=== PATIENT | female | born 1970 | race Caucasian/White ===

== ENCOUNTER → 2016-10-18 | Outpatient (CLI) | payer BC, OTHER ==
[~2016-10-18] MED LIST: CALC500C70 PO; CHOL1TAB42 PO; CYAN500T PO; HYDR-5688 PO; MELO7.5T5 PO; MISCCAP80 PO; MULT-506 PO; OMEG10007 PO
--- NOTE | 2016-10-18 14:56 | DIAGNOSTIC IMAGING REPORT ---
MRI OF THE LEFT KNEE CLINICAL HISTORY: Left knee pain. COMPARISON STUDY: Radiographs of the left knee dated 01/22/2012. TECHNIQUE: MRI of the left knee was performed utilizing proton density, T1, and T2-weighted sequences in the axial, sagittal, coronal planes. IV contrast was not administered for this examination. Note that interpretation is suboptimal without current plain film correlate. FINDINGS: Menisci: An oblique tear is identified involving the body and posterior horn of the medial meniscus. This appears to extend to the articular surface, best seen on the sagittal proton density image #6. The lateral meniscus is intact. Ligaments: The anterior and posterior cruciate ligaments are intact. The medial and lateral collateral ligaments are within normal limits. Extensor mechanism: The extensor mechanism is intact. Hoffa's fat pad is normal in appearance. Articular cartilage and bone: The articular cartilage is intact and well maintained all 3 compartments. Normal marrow signal is preserved of the visualized bony structures. There are tiny medial marginal osteophytes. Joint effusion: There is trace joint effusion. Soft tissues: There is faint intramuscular edema suggested within both heads of the gastrocnemius muscle. The musculature surrounding the knee joint is normal in bulk. A small popliteal cyst measures up to 2.5 cm. A 1.3 cm ganglion cyst is noted anterior to the semimembranosus tendon. IMPRESSION: 1. There is a small oblique tear involving the body and posterior horn of the medial meniscus. 2. The lateral meniscus, the cruciate ligaments, and the collateral ligaments are well-maintained. 3. Trace joint effusion and popliteal cyst. 4. Particular cartilage appears well maintained all 3 compartments. 5. Faint intramuscular edema is suggested within both heads of the gastrocnemius muscles, possibly representing mild strain. Clinical correlation will be required. Electronically signed by: Matthew Huff M.D. 10/18/2016 2:55 PM Dictated Date/Time: 10/18/2016 2:46 PM
== END | disposition home or self-care (01) ==
LOC: C.MRI 13:36
PROVIDERS: ATTEND Nurse Practitioner Family
DX: M25.562 Pain in left knee (principal)

== ENCOUNTER → 2016-11-02 | Outpatient (CLI) | payer BC, OTHER | END | disposition home or self-care (01) | LOC: C.RDSM 13:25 | PROVIDERS: ATTEND Physical Medicine & Rehabilitation Sports Medicine | DX: M25.562 Pain in left knee (principal) ==

== ENCOUNTER → 2017-01-17 | Day surgery (SDC) | payer BC, OTHER ==
[2016-12-26 13:44] VITALS: Ht 167.6 cm; Wt 66.8 kg
[~2017-01-17] VITALS: Ht 167.6 cm; Wt 66.8 kg
[~2017-01-17] MED LIST changes: +ATROPINE SULFATE 0.1 MG/ML 5ML SYR IV PRN; +CEFAZOLIN 1000MG/55 ML D5W IV SCH; +DEXAMETHASONE SOD INJ 4 MG/ML VIAL ONE; +EpHEDrine SULFATE INJ 50 MG/ML AMP IV PRN; +EpINEphrine INJ 1MG/ML AMP 1 MG/ML AMP ONE; +FENTANYL CITRATE INJ 50 MCG/1 ML 2 ML VIAL ONE; +FLUMAZENIL 0.1 MG/1 ML 10 ML VIAL IV PRN; +HYDROCODONE/ACETAMOPHEN 5/325MG TAB PO PRN; +LABETALOL HCL IV 5 MG/ML 20ML IV PRN; +LACTATED RINGER'S 1000ML 1,000 ML IV SCH; +LIDOCAINE HCL 2% 2 ML VIAL (20MG/ML) ONE; +LIDOCAINE/EPINEPHRINE 1% INJ 50 ML VIAL ONE; +MIDAZOLAM HCL 1 MG/ML 2ML VIAL ONE; +MoRPHine SULFATE 2 MG/ML CARP IV PRN; +MoRPHine SULFATE 4 MG/ML 1 ML CARP\\VIAL IV PRN; +NALOXONE HCL 0.4 MG/1 ML VIAL/CARP IV PRN; +ONDANSETRON INJ 2 MG/ML 2 ML VIAL IV PRN; +ONDANSETRON INJ 2 MG/ML 2 ML VIAL ONE; +PROMETHAZINE HCL INJ 12.5 MG in SODIUM CHLORIDE 0.9% 50ML 50 ML IV PRN; +PROPOFOL IV EMULSION 10 MG/ML 20 ML VIAL IV ONE; +SODIUM CHLORIDE 0.9% 1000ML 1,000 ML IV SCH
--- NOTE | 2017-01-17 07:01 | History & Physical Bridge Note ---
H&P Re-Evaluation Bridge Note: I have examined the patient, reviewed the History & Physical and in the interval since the performance of the History & Physical I have noted the following changes of clinical significance: No changes noted
--- NOTE | 2017-01-17 08:40 | Discharge Instructions-SurgCtr ---
Discharge Instructions Date of Service Jan 17, 2017. Visit Reason for Visit: Left Knee Medial Meniscus Tear Discharge Discharge Diagnosis / Problem: Status post left knee medial meniscectomy Discharge Goals Goal(s): Decrease discomfort, Improve function, Increase independence Activity Recommendations Activity Limitations: per Instructions/Follow-up section Anesthesia . Post Anesthesia Instructions: If you have had General Anesthesia or IV Sedation: * Do not drive today. * Resume driving when surgeon permits. * Do not make important decisions or sign legal documents today. * Call surgeon for: 1. Temperature elevations greater than 101 degrees F. 2. Uncontrollable pain. 3. Excessive bleeding. 4. Persistent nausea and vomiting. 5. Medication intolerance (nausea, vomiting or rash). * For nausea and vomiting use only clear liquids such as: tea, soda, bouillon until nausea subsides, then gradually increase diet as tolerated. * If you have any concerns or questions, call your surgeon's office. If physician is unavailable and it is an emergency, call 911 or go to the nearest emergency room. . Instructions / Follow-Up Instructions / Follow-Up The following are instructions to follow after your Arthroscopic Knee Surgery. ACTIVITY RECOMMENDATIONS: * Minimize activity until your first visit after surgery. * No excessive walking, jogging, sports or laboring. * Return to activity is individualized. Most patients are able to return to every day activities within one month. * Return to sports or intensive labor usually occurs at 2-3 months. * Driving is not permitted until at least your first postoperative visit at a minimum. Please ask your doctor when it is safe to resume driving. If you have an automatic vehicle and your left leg has been operated on, then you may begin driving as soon as you are comfortable and can drive safely. SCHOOL/WORK RECOMMENDATIONS: * You may return to sedentary work or school when you are feeling more comfortable. This is usually 3-7 days after surgery. * Expect increased discomfort with increased activity. Continue to elevate and ice the leg as much as possible. MEDICATIONS: * You will have a prescription for pain medication and an anti-inflammatory medication after surgery. * Use the pain medication for severe pain and the anti-inflammatory for less severe pain. Once the pain medication has run out, try to use the anti-inflammatory medication. If this is not effective, contact the office for assistance. * The pain medication may cause nausea, constipation and drowsiness. You should see how they affect you before driving or similar activity. * The anti-inflammatory medication may cause stomach upset and bleeding. If this occurs let your doctor know immediately . * Take a stool softener like Colace or a laxative like Senokot to prevent constipation. DIET: * Resume previous diet. SPECIAL CARE: ICE: You have the option of an ice cooler, gel packs or ice bags. * If you have an ice cooler, refer to the instructions for that device. The ice cooler may be used continuously. * If you do not have an ice cooler, you will need to use ice bags or gel packs. Do not apply ice directly to the skin. Use a thin dressing or lucinda shirt between the skin and ice bag. Apply ice for 20-30 minutes and repeat every 2-4 hours. This is especially important for the first 7-10 days after surgery. Once the pain improves, use ice as needed. ELEVATION: * Keep your leg elevated at or above the level of your heart as much as possible. * Expect some increased discomfort and swelling if you are standing for any length of time. * When lying down, avoid placing anything under your knee. Rather, prop your leg up by placing several pillows under your heel or calf. DRESSING: * Your dressing will be changed at your first therapy appointment approximately 4-5 days after surgery. Band-aids, tape strips or gauze may be applied. You may then change your dressing daily. * Reapply dressing followed by the Farhad wrap or Tubi-sld inclusion teacher stockinet and EBIce cooling pad (if chosen). * Always wash your hands prior to touching the incision area. * Once the stitches are removed, you may leave the wound open to air or cover with an Farhad wrap or Tubi-sld inclusion teacher stockinet. * If you have been given a white elastic stocking (RAMSEY hose), wear as much as possible for the first 1-3 weeks depending on swelling. * Expect some bloody drainage for the first few days after surgery. * Leave the tape strips, if present, in place for 5-7 days. * Band-aids and gauze may be changed daily. CRUTCHES: * You will need to use crutches after surgery. * You may gradually progress to full weight bearing as tolerated and wean off the crutches unless otherwise advised. * Your therapist can provide assistance weaning off crutches. * Patients who have a microfracture done may need to be toe-touch weight- bearing for 4-6 weeks. BATHING: * You may shower or sponge-bathe immediately after surgery. * The dressing will need to be covered with a plastic bag or plastic wrap until the dressing is changed on the fourth or fifth day after surgery. * Once the dressing has been changed on the fourth or fifth day after surgery, you may shower and get the incision wet. * Wash with regular soap and water. * Do not bathe (submerge the incision), soak, swim or use a hot tub until the incision is completely healed over with normal skin and the doctor has given the OK to proceed. * There is no need to apply any ointments, powders or salves to your incision. * Do not apply alcohol or hydrogen peroxide directly to the incision. * Diluted peroxide (50:50 mixture with sterile saline) may be used to clean dried blood from around the incision area. BRACE: * Bracing is generally not needed after routine Arthroscopic Knee surgery. THERAPY: * You will begin therapy four or five days after surgery. * Organized therapy with the therapist is important for the first 4-6 weeks after surgery. During that time you will attend therapy 1-3 times per week. * You will also need to do daily exercises for range of motion and strength as instructed. PROBLEMS/QUESTIONS: * If you have any problems such as severe pain, numbness, tingling or high fevers or if you have any questions, please contact the office at [phone]. * It is not uncommon to have some numbness and tingling after the surgery especially if you have had a nerve block done. This should gradually improve over the first 1- 2 days. If this persists longer or worsens please contact the office. FOLLOW UP VISIT: * Follow up with PT ON 01/21/17 AT 10AM * Follow up with Dr. Medrano on 02/01/17 at 9.15AM * If not already scheduled, please call the office at to schedule a follow-up appointment for 10 days, 6 weeks and 3 months after surgery. Diet Recommendations Home Diet: resume previous diet Procedures Procedures Performed: Left Knee Arthroscopic Partial Medial Meniscectomy Pending Studies Studies pending at discharge: no Medical Emergencies . Who to Call and When: Medical Emergencies: If at any time you feel your situation is an emergency, please call 911 immediately. . Non-Emergent Contact Non-Emergency issues call your: Surgeon Call Non-Emergent contact if: you have a fever, your pain is not controlled, wound has increased drainage . . "Provider Documentation" section prepared by Tre Garcia. .
[2017-01-17] MEDS: HYDROmorphone INJ 1 MG/ML SYR IV PRN ×3 (08:41→09:05)
--- NOTE | 2017-01-17 08:41 | [facility] Post Operative Brief Note ---
Immediate Operative Summary Operative Date Jan 17, 2017. Pre-Operative Diagnosis Left Medial Meniscus Tear Post-Operative Diagnosis Left Medial Meniscus Teach, Chronic Anterior Cruciate Ligament Insufficiency Procedure(s) Performed Left Knee Arthroscopic Partial Medial Meniscectomy Surgeon Dr. Jesu Medrano Domain Architect Surgeon(s) Dr. Shirley Harkins Estimated Blood Loss 5 cc Findings medial meniscus tear Specimens None Drains 0 Anesthesia LMA Complication(s) None Disposition Recovery Room / PACU
--- NOTE | 2017-01-17 08:43 | [facility] Operative Report ---
Operative Report Operative Date Jan 17, 2017. Pre-Operative Diagnosis Left Medial Meniscus Tear Post-Operative Diagnosis Left Medial Meniscus Teach, Chronic Anterior Cruciate Ligament Insufficiency Procedure(s) Performed Left Knee Arthroscopic Partial Medial Meniscectomy Surgeon Dr. Jesu Medrano Delicate Fabrics Presser Surgeon(s) Dr. Shirley Harkins Estimated Blood Loss 5 cc Findings MEDIAL MENISCAL COMPLEX TEAR Specimens None Complication(s) None Disposition PCU I attest to the content of the Intraoperative Record and any orders documented therein. Any exceptions are noted below.
--- NOTE | 2017-01-17 08:55 | [facility] Operative Report ---
Operative Report Operative Date Jan 17, 2017. Pre-Operative Diagnosis Left Medial Meniscus Tear Post-Operative Diagnosis Left Medial Meniscus Teach, Chronic Anterior Cruciate Ligament Insufficiency Procedure(s) Performed Left Knee Arthroscopic Partial Medial Meniscectomy Surgeon Dr. Jesu Medrano Trestle Mainternance Laborer Surgeon(s) Dr. Shirley Harkins Estimated Blood Loss 5 cc Findings medial meniscus tear Specimens None Drains 0 Anesthesia LMA Complication(s) None Disposition Recovery Room / PACU Implants none Indications 46 yr old female with ACL insufficiency and clinical signs/symptoms medial meniscus tear. Positive MRI Description of Procedure Patient identified as Leora Wilson. Operative site marked. Time out done. Antibiotics given. examined: 3/0/140. 1+ Haley, grade 2 pivot otherwise negative. no tourniquet. supine. injected with 1% lidocaine with epinephrine. lateral post. sterile prep and drape. standard portals medial lateral and superior. gr 2 chondrosis patella median ridge otherwise normal. trochlea normal. no loose bodies. gutters, popliteus medial tibial plateau and lat condyle normal. pcl ok but ACL deficient. grade 1 chondrosis lat tibial plateau , fissuring medial femoral condyle. posterior compartments normal. lat meniscus frayed and shaved. mcl perforated percutaneously with spinal needle. complex medial mensicus tear debrided back to stable rim with shaver and punches. debris cleared. portals closed with 4-0 nylon, soft sterile dressing. awakened and to recovery stable. counts ok, no specimens. blood loss minimal.spoke to family instructions given, aspirin, no complications. I attest to the content of the Intraoperative Record and any orders documented therein. Any exceptions are noted below.
[2017-01-17 09:22] VITALS: TEMP 36.4
--- NOTE | 2017-01-17 09:56 | Anesthesia Progress Nt - [facility] ---
Anesthesia Post Op Note Date & Time Jan 17, 2017 at 09:56 Vital Signs Pain Intensity: 5.0 Vital Signs Past 12 Hours Date Time Temp Pulse Resp B/P (MAP) Pulse Ox O2 Delivery O2 Flow Rate FiO2 01/17/17 09:51 85 16 123/58 (79) 100 Room Air 01/17/17 09:22 36.4 68 16 118/67 (84) 98 Room Air 01/17/17 09:11 116/75 01/17/17 09:10 37.5 76 16 116/75 100 Room Air 01/17/17 09:09 66 13 01/17/17 09:09 66 13 100 01/17/17 09:06 109/73 01/17/17 09:04 67 15 01/17/17 09:04 67 15 100 01/17/17 09:01 104/78 01/17/17 08:59 70 14 100 01/17/17 08:59 70 14 01/17/17 08:58 63 15 100 01/17/17 08:58 63 15 100 01/17/17 08:58 63 15 01/17/17 08:58 63 15 01/17/17 08:56 125/71 01/17/17 08:56 125/71 01/17/17 08:55 99/80 01/17/17 08:55 99/80 01/17/17 08:53 64 13 100 01/17/17 08:53 64 13 100 01/17/17 08:53 63 13 01/17/17 08:53 63 13 01/17/17 08:51 99/80 01/17/17 08:51 99/80 01/17/17 08:48 60 9 100 01/17/17 08:48 60 9 100 01/17/17 08:48 59 9 01/17/17 08:48 59 9 01/17/17 08:47 67 10 100 01/17/17 08:47 66 10 01/17/17 08:46 119/63 01/17/17 08:42 64 15 01/17/17 08:42 63 15 100 01/17/17 08:41 113/64 01/17/17 08:37 72 15 100 01/17/17 08:37 73 15 01/17/17 08:36 128/70 01/17/17 08:33 122/73 01/17/17 08:32 81 100 01/17/17 08:32 37.1 80 12 122/73 100 Diffusion Mask 6 01/17/17 08:32 81 01/17/17 06:29 37.4 73 16 115/75 (88) 99 Room Air Notes Mental Status: alert / awake / arousable, participated in evaluation Pt Amnestic to Procedure: Yes Nausea / Vomiting: adequately controlled Pain: adequately controlled Airway Patency, RR, SpO2: stable & adequate BP & HR: stable & adequate Hydration State: stable & adequate Anesthetic Complications: no major complications apparent
[2017-01-17 10:13] VITALS: BP 113/62; PULSE 74; O2SAT 99
== END | disposition home or self-care (01) ==
LOC: X.SURG 06:16
PROVIDERS: ATTEND Physical Medicine & Rehabilitation Sports Medicine
DX: M23.204 Derangement of unspecified medial meniscus due to old tear or injury, left knee (principal); M19.90 Unspecified osteoarthritis, unspecified site; Z90.710 Acquired absence of both cervix and uterus

== ENCOUNTER → 2017-02-25 | Outpatient (CLI) | payer BC, OTHER ==
[~2017-02-25] MED LIST changes: -ATROPINE SULFATE 0.1 MG/ML 5ML SYR IV PRN; -CEFAZOLIN 1000MG/55 ML D5W IV SCH; -DEXAMETHASONE SOD INJ 4 MG/ML VIAL ONE; -EpHEDrine SULFATE INJ 50 MG/ML AMP IV PRN; -EpINEphrine INJ 1MG/ML AMP 1 MG/ML AMP ONE; -FENTANYL CITRATE INJ 50 MCG/1 ML 2 ML VIAL ONE; -FLUMAZENIL 0.1 MG/1 ML 10 ML VIAL IV PRN; -HYDROCODONE/ACETAMOPHEN 5/325MG TAB PO PRN; -LABETALOL HCL IV 5 MG/ML 20ML IV PRN; -LACTATED RINGER'S 1000ML 1,000 ML IV SCH; -LIDOCAINE HCL 2% 2 ML VIAL (20MG/ML) ONE; -LIDOCAINE/EPINEPHRINE 1% INJ 50 ML VIAL ONE; -MIDAZOLAM HCL 1 MG/ML 2ML VIAL ONE; -MoRPHine SULFATE 2 MG/ML CARP IV PRN; -MoRPHine SULFATE 4 MG/ML 1 ML CARP\\VIAL IV PRN; -NALOXONE HCL 0.4 MG/1 ML VIAL/CARP IV PRN; -ONDANSETRON INJ 2 MG/ML 2 ML VIAL IV PRN; -ONDANSETRON INJ 2 MG/ML 2 ML VIAL ONE; -PROMETHAZINE HCL INJ 12.5 MG in SODIUM CHLORIDE 0.9% 50ML 50 ML IV PRN; -PROPOFOL IV EMULSION 10 MG/ML 20 ML VIAL IV ONE; -SODIUM CHLORIDE 0.9% 1000ML 1,000 ML IV SCH
--- NOTE | 2017-02-26 13:56 | MAMMOGRAPHY REPORT ---
BILATERAL DIGITAL SCREENING MAMMOGRAM TOMOSYNTHESIS WITH CAD: 02/25/2017 CLINICAL HISTORY: Routine screening. Patient has no complaints. TECHNIQUE: Breast tomosynthesis in addition to standard 2D mammography was performed. Current study was also evaluated with a Computer Aided Detection (CAD) system. COMPARISON: Comparison is made to exams dated: 02/23/2016 mammogram, 02/02/2015 mammogram, 01/05/2013 [place] mmogram, 12/12/2010 mammogram - [facility], 06/18/2007, and 06/18/2007. BREAST COMPOSITION: The tissue of both breasts is heterogeneously dense, which may obscure small mas ses. FINDINGS: A nodular asymmetry in the medial right breast on the CC view appears very similar to the p rior 2012 and 2011 mammograms, most likely normal overlapping tissue. There are stable asymmetries i n the lateral left breast. No new suspicious mass, architectural distortion or cluster of microcalci fications is seen. IMPRESSION: ACR BI-RADS CATEGORY 1: NEGATIVE There is no mammographic evidence of malignancy. A 1 year screening mammogram is recommended. The pa tient will receive written notification of the results. Approximately 10% of breast cancers are not detected with mammography. A negative mammographic report should not delay biopsy if a clinically suggestive mass is present. Nora Hernadez M.D. ay/:02/25/2017 16:58:57 Make Ready Worker: Ayanna MONTEZ)(Candi), [facility] letter sent: Normal 1/2 BI-RADS Code: ACR BI-RADS Category 1: Negative
== END | disposition home or self-care (01) ==
LOC: C.MAMM 16:20
PROVIDERS: ATTEND Specialist
DX: Z12.31 Encounter for screening mammogram for malignant neoplasm of breast (principal)

== ENCOUNTER → 2018-02-26 | Outpatient (CLI) | payer OTHER ==
[~2018-02-26] MED LIST changes: -HYDR-5688 PO
--- NOTE | 2018-02-27 15:11 | MAMMOGRAPHY REPORT ---
BILATERAL DIGITAL SCREENING MAMMOGRAM TOMOSYNTHESIS WITH CAD: 02/26/2018 CLINICAL HISTORY: Routine screening. Patient has no complaints. TECHNIQUE: The study was acquired using full field digital technology and interpreted from soft copy. Breast tomosynthesis in addition to standard 2D mammography was performed. Current study was also ev aluated with a Computer Aided Detection (CAD) system. COMPARISON: Comparison is made to exams dated: 02/25/2017 mammogram, 02/23/2016 mammogram, 02/02/2015 [place] mogram, 01/05/2013 mammogram, 01/02/2012 mammogram, and 12/12/2010 mammogram - [facility]. BREAST COMPOSITION: The tissue of both breasts is heterogeneously dense, which may obscure small mass es. FINDINGS: The parenchymal pattern is similar to prior exams. There is a stable gently lobulated 14 mm mass in the upper outer left breast, that appears stable in size dating back to at least 2011. No developing mass, architectural distortion or cluster of suspicious microcalcifications is seen in either breast . IMPRESSION: ACR BI-RADS CATEGORY 2: BENIGN There is no mammographic evidence of malignancy. A 1 year screening mammogram is recommended.( 019) The patient will receive written notification of the results. Some breast cancers are not detected with mammography. A negative mammographic report should not milagros y biopsy if a clinically suggestive mass is present. Nora Hernadez M.D. ay/:02/26/2018 16:38:44 Oil Well Perforator Operator: RT Mesha(Jodi)(M), [facility] letter sent: Normal 1/2 BI-RADS Code: ACR BI-RADS Category 2: Benign
== END ==
LOC: C.MAMM 16:14
PROVIDERS: ATTEND Physician Assistant
DX: Z12.31 Encounter for screening mammogram for malignant neoplasm of breast (principal)

== ENCOUNTER → 2018-03-06 | Outpatient (CLI) | payer OTHER ==
[2018-03-06 17:30] LABS: ALBUMIN 4.2 gm/dl (3.4-5.0); ALKALINE PHOSPHATASE 43 U/L (45-117); ALT/SGPT 26 U/L (12-78); AST/SGOT 21 U/L (15-37); BLOOD UREA NITROGEN 12 mg/dl (7-18); CALCIUM 9.1 mg/dl (8.5-10.1); CARBON DIOXIDE 28 mmol/L (21-32); CHOLESTEROL 213 mg/dl (0-200); CREATININE 0.82 mg/dl (0.60-1.20); GLUCOSE 83 mg/dl (70-99); LDL CHOLESTEROL CALCULATED 117 mg/dl; POTASSIUM 3.8 mmol/L (3.5-5.1); SODIUM 138 mmol/L (136-145); TOTAL PROTEIN 7.3 gm/dl (6.4-8.2)
[2018-03-07 06:22] LABS: HEMOGLOBIN A1C 5.4 % (4.5-5.6)
== END | disposition home or self-care (01) ==
LOC: C.LABBC 12:38
PROVIDERS: ATTEND Neuromusculoskeletal Medicine & OMM
DX: Z13.220 Encounter for screening for lipoid disorders (principal); Z13.1 Encounter for screening for diabetes mellitus